=== PATIENT | female | born 1990 | race Two or more races ===

== ENCOUNTER 2016-09-22 10:45 | Emergency (ER) | payer SELFPAY ==
[~2016-09-22] VITALS: Ht 170.2 cm; Wt 60.3 kg
[2016-09-22 11:04] VITALS: BP 124/71
[2016-09-22] MEDS ORDERED: Lidocaine 2% 20mg/ml/Epi 0.005mg/ml 20ml vial ONE (11:08)
[2016-09-22] MEDS ORDERED: Lidocaine 1% 10mg/ml/Epi 0.005mg/ml 10ml vial INJ ONE (11:15)
[2016-09-22] MEDS ORDERED: IBUPROFEN600 MG ORAL (11:39)
[2016-09-22] MEDS ORDERED: BACITRACIN ZIN1 EACH TOPIC (11:40)
[2016-09-22] MEDS ORDERED: Tetanus/Diptheria/Pertussis Vaccine 0.5ml Syr IM ONE (11:45)
[2016-09-22 11:59] VITALS: BP 124/71
--- NOTE | 2016-09-22 12:08 | Emergency Room Report ---
History of Present Illness General Chief Complaint: Laceration Source: Patient Present Illness HPI Patient is 25-year-old female who presented after increased pain to her left hand after accidentally cutting with a knife. The patient denied recent tetanus vaccine. Patient is right-hand dominant and works is a student currently. She denied any numbness or weakness distally. Patient denied pulsatile bleeding Allergies: Coded Allergies: No Known Allergies (Unverified , 09/22/16) Patient History Past Medical History: see triage record Last Menstrual Period: 09/03/16 Now: No : 0 Para: 0 Reviewed Nursing Documentation: PMH: Agreed, PSxH: Agreed Nursing Documentation-PMH Past Medical History: No Stated History Review of Systems All Other Systems: negative except mentioned in HPI Physical Exam Vital Signs Date Time Temp Pulse Resp B/P Pulse Ox O2 Delivery O2 Flow Rate FiO2 09/22/16 10:55 98.2 108 22 128/74 100 Room Air General Appearance: well appearing, no apparent distress, alert, GCS 15, non- toxic Head: normocephalic, atraumatic ENT: hearing grossly normal, normal voice Neck: full range of motion, supple Respiratory: no respiratory distress, speaking full sentences Cardiovascular #1: normal inspection, regular rate, rhythm, no edema Gastrointestinal: normal inspection Musculoskeletal: normal inspection, back normal, no calf tenderness Neurologic: normal inspection, alert, oriented x3, normal gait Psychiatric: mood/affect normal Skin: no rash, laceration - laceration 2.5 cm linear Procedures Laceration/Wound Repair Laceration/Wound Repair : Consent: Verbal Wound Location: upper extremity Wound's Depth, Shape: superficial Wound Length (cm): 2 Wound Explored: clean Irrigated w/ Saline (ccs): 100 Betadine Prep?: Yes Anesthesia: Lidocaine w/ Epi Volume Anesthetic (ccs): 3 Wound Debrided: minimal Wound Repaired With: sutures Suture Size/Type: 5:0, other - chromic gut Number of Sutures: 5 Medical Decision Making Diagnostic Impression: Primary Impression: Laceration ER Course Patient presented for laceration. Differential diagnoses included foreign body , nerve injury, arterial injury among others. Patient's benign exam and does not appear to require any further imaging or laboratory testing at this time. Patient was advised that wound checked in the next 3 days. Was irrigated and closed and verbal sutures. Patient was advised to have sutures removed the sutures did not dissolve spontaneously Last Vital Signs Date Time Temp Pulse Resp B/P Pulse Ox O2 Delivery O2 Flow Rate FiO2 09/22/16 11:59 98.1 103 21 124/71 99 Room Air Status: improved Disposition: HOME, SELF-CARE Condition: Stable Scripts Bacitracin Zinc* (BACITRACIN ZINC*) 1 Each Packet 1 APPLIC TOPIC THREE TIMES A DAY, #30 PACKET Prov: Chito Lee 09/22/16 Ibuprofen* (MOTRIN*) 600 Mg Tablet 600 MG ORAL Q8H Y for For Pain, #30 TAB 0 Refills Prov: Chito Lee 09/22/16 Referrals: NOT CHOSEN IPA/MD,REFERRING (PCP) Patient Instructions: Laceration Care, Adult Chito Lee Sep 22, 2016 12:08
== END 2016-09-22 12:00 | disposition home or self-care (01) ==
LOC: EMR 11:11
DX: S61.412A Laceration without foreign body of left hand, initial encounter (principal); W26.0XXA Contact with knife, initial encounter; Y92.89 Other specified places as the place of occurrence of the external cause; Z23 Encounter for immunization
CPT/HCPCS: 90471; 90715; 96372